=== PATIENT | female | born 1985 | race Caucasian/White ===

== ENCOUNTER 2023-09-28 08:53 | Inpatient (IN) | payer MEDICAID ==
[~2023-09-28] VITALS: Ht 175.3 cm; Wt 136.2 kg
[2023-10-08] MEDS ORDERED: LR 1,000 ML IV SCH (09:30)
[2023-10-08] MEDS ORDERED: Scopolamine 1 MG Delivered 3-Day PATCH TD SCH (09:30)
[2023-10-08] MEDS ORDERED: Meclizine 25 MG TAB PO SCH (09:30)
[2023-10-10] VITALS (17 sets, daily range): BP systolic 137–154; BP diastolic 58–85; PULSE 94–110; TEMP 97.6
[2023-10-10] MEDS ORDERED: Rocuronium 50 MG/5 ML Multi-Dose VIAL ONE ×2 (12:33→13:35)
[2023-10-10] MEDS ORDERED: fentaNYL 50 MCG/ML 2 ML VIAL ONE ×2 (12:33→14:37)
[2023-10-10] MEDS ORDERED: Lidocaine PF 2% (20 MG/ML) 5 ML VIAL ONE (12:35)
[2023-10-10] MEDS ORDERED: NS 10 ML IV ONE ×2 (12:36→12:37)
[2023-10-10] MEDS ORDERED: NS 100 ML IV ONE (12:36)
[2023-10-10] MEDS ORDERED: Ondansetron 4 MG/2 ML VIAL ONE (12:36)
[2023-10-10] MEDS ORDERED: dexAMETHasone 10 MG/ML VIAL ONE (12:36)
[2023-10-10] MEDS ORDERED: ePHEDrine 50 MG/ML VIAL ONE (13:13)
[2023-10-10] MEDS ORDERED: Indocyanine Green 25 MG KIT IV ONE (13:20)
[2023-10-10] MEDS ORDERED: hydrALAZINE 20 MG/ML 1 ML VIAL IV PRN (13:30)
[2023-10-10] MEDS ORDERED: Morphine 2 MG/1 ML VIAL [PACU/SDC ONLY] IV PRN (13:30)
[2023-10-10] MEDS ORDERED: Ondansetron 4 MG/2 ML VIAL IV PRN ×2 (13:30→15:45)
[2023-10-10] MEDS ORDERED: droPERidol 2.5 MG/ML 2 ML VIAL IV PRN (13:30)
[2023-10-10] MEDS ORDERED: HYDROmorphone 1 MG/1 ML SYRINGE [PACU/SDC ONLY] IV PRN (13:30)
[2023-10-10] MEDS ORDERED: fentaNYL 50 MCG/ML 1 ML SYRINGE/VIAL [PACU/SDC ONLY] IV PRN (13:30)
[2023-10-10] MEDS ORDERED: diphenhydrAMINE 25 MG CAP PO PRN (15:45)
[2023-10-10] MEDS ORDERED: Promethazine 25 MG Rectal SUPP RC PRN (15:45)
[2023-10-10] MEDS ORDERED: HYDROmorphone PCA 0.2 MG/ML 30 ML VIAL IV SCH (15:45)
[2023-10-10] MEDS ORDERED: D5 1/2 NS & 20 mEq KCl 1,000 ML IV SCH (15:45)
[2023-10-10] MEDS ORDERED: Naloxone 0.4 MG/ML VIAL IV PRN ×2 (15:45)
[2023-10-10] MEDS ORDERED: D5W 1,000 ML IV SCH (15:45)
[2023-10-10] MEDS ORDERED: diphenhydrAMINE 50 MG/ML 1 ML VIAL IV PRN (15:45)
--- NOTE | 2023-10-10 16:55 | NUR ---
pt admitted to room from PACU, a&ox4. vss. pt denies pain at rest. no nausea/vomiting. x4 lap sites and BUZZ drain dressing are cdi. pt on 2L nasal cannula. scds to ble. perez to dd w clear yellow urine output. med rec complete. oriented pt to room. no needs at this time. call light in reach.
[2023-10-10] MEDS ORDERED: Sennosides/Docusate 8.6-50 MG TAB PO SCH (21:00)
--- NOTE | 2023-10-10 21:11 | NUR ---
Patient assessed around 2029. Alert and oriented, and able to make needs known. Complained of level 4 pain to abdomen, encouraged to use MAINTENANCE DIRECTOR pump. Pain goal is 2. Peripheral IV to right hand. Denies SOB and dypsnea. Weaned down to room air. LS CTA in upper, diminishe din lower. HRR. BSAx4. 5 lap sites CDI. BUZZ nick to LLQ. 1+ edema BLE. Encouraged to get up and ambulate in hallway, and did. Voices no further questions, needs, or concerns at this time. In bed with call light within reach.
[2023-10-11] VITALS (13 sets, daily range): BP systolic 127–146; BP diastolic 73–87; PULSE 72–82; TEMP 98–98.4
[2023-10-11 06:08] LABS: BASO % 0.1 % (0.0-2.0); GRAN # 12.8 K/mm3 (1.4-6.5); GRAN % 89.1 % (42.2-75.2); HEMATOCRIT 39.6 % (37.0-47.0); HEMOGLOBIN 13.5 g/dl (12.5-16.0); LYMPH # 0.7 K/mm3 (1.2-3.4); LYMPH % 4.9 % (20.0-51.0); MEAN CELL VOLUME 89 fl (80.0-100.0); MEAN CORPUSCULAR HEMOGLOBIN 30 pg (27-31); MEAN CORPUSCULAR HGB CONC 34 g/dl (33.0-37.0); MEAN PLATELET VOLUME 9.2 fl (7.4-10.4); MONO # 0.8 K/mm3 (0.1-0.6); MONO % 5.3 % (1.7-9.3); PLATELET COUNT 300 K/mm3 (130-400); RED BLOOD COUNT 4.47 M/mm3 (4.10-5.30)
--- NOTE | 2023-10-11 06:24 | NUR ---
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 Given PRN Zofran twice this shift. Has remained NPO. Urine is yellow, cloudy with sediment this morning. BUZZ drain emptied, see flowsheet. Ambulated in halls twice this shift. Voices no questions, needs, or concerns at this time. In bed with call light within reach.
[2023-10-11 06:25] LABS: BILIRUBIN,TOTAL 0.7 mg/dL (0.2-1.2); CREATININE, serum 0.71 mg/dL (0.57-1.11); POTASSIUM 3.7 mEq/L (3.5-4.5); TOTAL PROTEIN 7.2 g/dl (6.2-8.1)
--- NOTE | 2023-10-11 08:45 | NUR ---
pt awake and resting in bed. vss. pt reports feeling much better today. 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 pt denies nausea. pt reports gas pains in right shoulder. pt has been ambulating in the halls to help with pain relief. pt wanting to have perez catheter removed, pale yellow output present. remains npo for barrium swallow this morning. bowel sounds are active. scds to ble. gregoria drain with minimal blood tinged output. x5 lap sites are cdi with bandaids. pt denies needs. call light in reach.
[2023-10-11] MEDS ORDERED: Pantoprazole 40 MG in NS 10 ML IV SCH (09:00)
--- NOTE | 2023-10-11 10:56 | NUR ---
Initial visit; Patient thanked Edge Setter for looking in on her and offering God's blessings. Patient thanked Edge Setter for keeping her in Edge Setter's prayers.
--- NOTE | 2023-10-11 11:24 | NUR ---
patient back in room from [facility]. requesting pain medication after increased activity, ANIMAL WARDEN discontinued before study due to minimal usage. educated patient on water intake, 30 ml Q1 hr for the first 6 hour, pt verbalizes understanding.
--- NOTE | 2023-10-11 12:05 | NUR ---
clerical warehouse worker met with patient to discuss discharge planning. Patient lives in [place] with her life partner, Shashank Valladares# [phone], and three children. PCP is Dr. Alicea, Pharmacy is [facility]. Insurance is [employer] No issues affording medications. No DPOA-HC and not interested in completing one while in the hospital. No DME and reports to be independent with ADLS. Patient reports to be able to transport herself to and from appointments. Patient would like to return home at time of discharge. DIscharge plan: Home
--- NOTE | 2023-10-11 21:17 | NUR ---
Patient assessed around 194. Alert and oriented, and able to make needs known. Reported pain was at a 5, goal is a 4. Patient ambulated in hallways, then given PRN [place] as requested around 2014. Denies SOB and dyspnea. LS CTA. HRR. BSAx4. Patient reports she had a loose stools this morning, and did not want to take Senokot tonight. 5 lap sites to abdomen with bandaids CDI. BUZZ drain to abdomen intact. Has been tolerating clear liquids without any nausea. Voices no questions, needs, or concerns at this time. In bed with call light within reach.
[2023-10-12] VITALS (9 sets, daily range): BP systolic 117–143; BP diastolic 76–81; PULSE 58–75; TEMP 97.7–98.2
--- NOTE | 2023-10-12 05:59 | NUR ---
Patient received PRN [place] twice this shift. Has been up independent in room. Tolerating clear liquids, denies nausea. BUZZ drain with 10 ml output. Voices no questions, needs, or concerns at this time. In bed with call light within reach.
--- NOTE | 2023-10-12 07:57 | NUR ---
Pt doing well this morning, minimal complaints of pain. Pt is getting up independently without issues. IVF stopped per order. Pt tolerating PO without any complaints of nausea/vomiting. No needs verbalized, will continue to monitor.
--- NOTE | 2023-10-12 13:00 | NUR ---
Pt continues to do well, tolerating full liquid diet. She is doing well follow her diet from via [place] light. Pts pain is well controlled taking oral pain medication as needed. Pt getting up and walking independently with no issues.
[2023-10-12] MEDS ORDERED: NORCO 325 MG-51 TAB PO (16:49)
[2023-10-12] MEDS ORDERED: PRILOSEC 20MG20 MG PO (16:49)
[2023-10-12] MEDS ORDERED: ZOFRAN 4MG T4 MG/TAB PO (16:49)
--- NOTE | 2023-10-12 17:11 | NUR ---
Dr Hills in to see pt, orders wrote for discharge. Drain removed per Dr Hills. Reviewed discharge instructions with pt. Advised pt have someone pick up truck driver medications as pharmacy as hers closes at 6pm. Pt reported her ride would be here around 6:30. INT removed from left hand. Informed pt to notify nursing when her ride does arrive, no needs verbalized at this time.
--- NOTE | 2023-10-12 17:45 | NUR ---
Received report from LYLY Cardoza, patient finishing her tray and waiting for her ride, left the floor at 1830, escorted with staff, VSS.
== END 2023-10-12 18:30 | disposition home or self-care (01) | DRG 621 ==
LOC: SURG 10-10 10:38 → EDSTATUS 10-10 13:30 → SDCO 10-10 13:30 → SURG 10-10 16:16
PROVIDERS: ADMIT Surgery
PROC: 0D164ZA Bypass Stomach to Jejunum, Percutaneous Endoscopic Approach (ICD-10-PCS; principal; 2023-10-10 13:30)
DX: E66.01 Morbid (severe) obesity due to excess calories (principal); Z68.41 Body mass index [BMI] 40.0-44.9, adult
CPT/HCPCS: A4314; C9113; J0690; J1100; J1170; J1650; J1790; J1956; J2405; J2704; J3010; J3480; J7070; J7120